=== PATIENT | female | born 1945 | race Caucasian/White ===

== ENCOUNTER 2020-12-23 14:43 | Emergency (ER) | payer MEDICARE, OTHER ==
[~2020-12-23 14:43] MED LIST: ASPIRIN81 MG PO; ATIVAN0.5 MG PO; CEFDINIR300 MG PO; CRANBERRY400 MG PO; DILANTIN100 MG PO; FLORASTOR250 MG PO; HALDOL1 MG PO; HEPARIN 10 UNIT/ML IV; K-DUR20 MEQ PO; LACTINEX1 EACH PO; LAMICTAL (BLUE)25 MG PO; LASIX20 MG PO; LEVAQUIN500 MG PO; LOPRESSOR100 MG PO; LOPRESSOR50 MG PO; MERREM500 MG IV; MILK OF MA2400 MG/10 PO; MIRALAX17 GM PO; NAMZARIC 21 MG1 EACH PO; NEURONTIN100 MG PO; NITROSTAT0.4 MG SL; NORCO 5-325 TA1 EACH PO; PAXIL20 MG PO; PHENOBARBITAL64.8 MG PO; PRILOSEC20 MG PO; REMERON15 MG PO; REMERON30 MG PO; RISPERDAL37.5 MG/2 IM; ROBITUSSIN100 MG/5 M PO; SENOKOT8.6 MG PO; TRAZODONE HCL50 MG PO; TYLENOL325 M1 PO; ULTRAM50 MG PO; UROCIT-K10 MEQ PO; VISTARIL25 MG PO; XANAX0.25 MG PO; ZESTRIL10 MG PO; ZOFRAN4 MG PO
[2020-12-23 16:05] LABS: BILIRUBIN NEGATIVE (NEGATIVE); BLOOD TRACE-INTACT Ery/uL (NEGATIVE); CLARITY CLEAR (CLEAR); COLOR YELLOW (YELLOW); GLUCOSE (U) NORMAL (NORMAL); LEUKOCYTES 3+ Leu/uL (NEGATIVE); NITRITE POSITIVE (NEGATIVE); PROTEIN NEGATIVE (NEGATIVE); UROBILINOGEN 0.2 mg/dL (0.2-1.0); pH 6.5 (5.0-9.0)
[2020-12-23 16:15] LABS: BASOPHIL 0.2 % (0-2); HCT 32.7 % (37.0-47.0); HGB 10.9 g/dl (12.5-16.0); LYMPHOCYTE 11.1 % (15-48); MCH 31.6 pg (25.0-31.0); MCHC 33.3 g/dL (32.0-36.0); MCV 94.8 fL (78.0-100.0); MONOCYTE 7.7 % (0-12); MPV 10.2 fL (6.0-9.5); NRBC 0; PLT 187 K/uL (150-400); RBC 3.45 M/uL (4.20-5.40); RDW 13.3 % (11.5-14.0); WBC 10.7 K/uL (4.0-10.5)
[2020-12-23 16:19] LABS: AMORPHOUS URATES CRYSTALS MODERATE; BACTERIA 4+; MUCOUS MODERATE; URINARY RBC RARE
[2020-12-23 16:31] LABS: BUN/CREAT RATIO (CALC) 17.1 RATIO; CREATININE 0.82 mg/dL (0.51-0.95); POTASSIUM 5.6 mmol/L (3.5-5.1)
[2020-12-23] MEDS ORDERED: MACROBID100 MG PO (17:54)
== END 2020-12-23 21:45 | disposition home or self-care (01) ==
LOC: FER 14:43
PROVIDERS: Emergency Medicine
DX: R41.82 Altered mental status, unspecified (principal); N39.0 Urinary tract infection, site not specified; E87.5 Hyperkalemia; E11.9 Type 2 diabetes mellitus without complications; I10 Essential (primary) hypertension; Z88.0 Allergy status to penicillin; Z88.8 Allergy status to other drugs, medicaments and biological substances
CPT/HCPCS: 36415; 73110; 80048; 81001; 85025; 87076; 87088; 87186

== ENCOUNTER 2021-05-14 14:46 | Emergency (ER) | payer MEDICARE, OTHER ==
[~2021-05-14 14:46] MED LIST changes: +MACROBID100 MG PO
[2021-05-14] MEDS ORDERED: NORCO 5-325 TA1 EACH PO ×3 (18:53→18:57)
== END 2021-05-14 20:10 | disposition home or self-care (01) ==
LOC: FER 14:46
DX: S42.251A Displaced fracture of greater tuberosity of right humerus, initial encounter for closed fracture (principal); S52.031A Displaced fracture of olecranon process with intraarticular extension of right ulna, initial encounter for closed fracture; S40.021A Contusion of right upper arm, initial encounter; J44.9 Chronic obstructive pulmonary disease, unspecified; I25.10 Atherosclerotic heart disease of native coronary artery without angina pectoris; F20.9 Schizophrenia, unspecified; Z88.8 Allergy status to other drugs, medicaments and biological substances; Z88.0 Allergy status to penicillin; W01.0XXA Fall on same level from slipping, tripping and stumbling without subsequent striking against object, initial encounter; Y92.009 Unspecified place in unspecified non-institutional (private) residence as the place of occurrence of the external cause
CPT/HCPCS: 73030; 73080; 96372; J1170

== ENCOUNTER 2021-08-07 12:37 | Emergency (ER) | payer MEDICARE, OTHER ==
[2021-08-07 13:30] LABS: BASOPHIL 0.2 % (0-2); EOSINOPHIL 0.8 % (0-7); HCT 40.4 % (37.0-47.0); HGB 13.2 g/dl (12.5-16.0); LYMPHOCYTE 15.2 % (15-48); MCH 31.1 pg (25.0-31.0); MCHC 32.7 g/dL (32.0-36.0); MCV 95.1 fL (78.0-100.0); MONOCYTE 9.3 % (0-12); MPV 10.6 fL (6.0-9.5); NEUTROPHIL 73.4 % (41-80); NRBC 0; PLT 203 K/uL (150-400); RBC 4.25 M/uL (4.20-5.40); WBC 9.2 K/uL (4.0-10.5)
[2021-08-07 13:30] LABS: BILIRUBIN NEGATIVE (NEGATIVE); BLOOD TRACE-INTACT Ery/uL (NEGATIVE); CLARITY CLEAR (CLEAR); COLOR YELLOW (YELLOW); GLUCOSE (U) NORMAL (NORMAL); LEUKOCYTES 1+ Leu/uL (NEGATIVE); NITRITE NEGATIVE (NEGATIVE); PROTEIN TRACE (LOW) mg/dL (NEGATIVE); UROBILINOGEN 0.2 mg/dL (0.2-1.0); pH 6.5 (5.0-9.0)
[2021-08-07 13:45] LABS: BACTERIA 1+
[2021-08-07 14:02] LABS: ALBUMIN 3.9 g/dL (3.4-5.0); BILIRUBIN - TOTAL 0.5 mg/dL (0.2-1.0); BUN/CREAT RATIO (CALC) 19.2 RATIO; CREATININE 0.73 mg/dL (0.51-0.95); GLOBULIN (CALCULATION) 3.6 g/dL; POTASSIUM 4.6 mmol/L (3.5-5.1); TOTAL PROTEIN 7.5 g/dL (6.4-8.2)
[2021-08-07 14:07] LABS: LACTIC ACID 1.4 mmol/L (0.4-1.9)
[2021-08-07 14:23] LABS: INFLUENZA A NAA NEGATIVE (NEGATIVE)
[2021-08-07 14:31] LABS: CORONAVIRUS 2019 SARS-COV-2 POSITIVE (NEGATIVE)
== END 2021-08-07 17:50 | disposition home or self-care (01) ==
LOC: FER 12:37
PROVIDERS: Emergency Medicine
DX: U07.1 COVID-19 (principal); J96.00 Acute respiratory failure, unspecified whether with hypoxia or hypercapnia; I10 Essential (primary) hypertension; J44.9 Chronic obstructive pulmonary disease, unspecified; F20.9 Schizophrenia, unspecified; Z88.0 Allergy status to penicillin; Z88.1 Allergy status to other antibiotic agents; Z23 Encounter for immunization
CPT/HCPCS: 36415; 36600; 70450; 71045; 80053; 81001; 82803; 83605; 84145; 84484; 85025; 94762; M0243; Q0244; U0002

== ENCOUNTER 2021-08-30 00:57 | Inpatient (IN) | payer MEDICARE, OTHER ==
[~2021-08-30] VITALS: Ht 157.5 cm; Wt 81.0 kg
[2021-08-30 02:11] LABS: BILIRUBIN 1+ mg/dL (NEGATIVE); BLOOD NEGATIVE Ery/uL (NEGATIVE); CLARITY CLEAR (CLEAR); COLOR YELLOW (YELLOW); GLUCOSE (U) NORMAL (NORMAL); LEUKOCYTES NEGATIVE Leu/uL (NEGATIVE); NITRITE NEGATIVE (NEGATIVE); PROTEIN 2+ mg/dL (NEGATIVE); SPECIFIC GRAVITY >=1.030 (1.001-1.030); UROBILINOGEN 0.2 mg/dL (0.2-1.0); pH 5.5 (5.0-9.0)
[2021-08-30 02:19] LABS: BASOPHIL 0.2 % (0-2); EOSINOPHIL 0 % (0-7); HGB 12.3 g/dl (12.5-16.0); LYMPHOCYTE 6.4 % (15-48); MCH 31.4 pg (25.0-31.0); MCHC 32.4 g/dL (32.0-36.0); MCV 96.9 fL (78.0-100.0); MPV 10.9 fL (6.0-9.5); NRBC 0; PLT 185 K/uL (150-400); RBC 3.92 M/uL (4.20-5.40); RDW 14.9 % (11.5-14.0)
[2021-08-30 02:20] LABS: AMORPHOUS URATES CRYSTALS TRACE; BACTERIA 2+
[2021-08-30 02:35] LABS: BUN/CREAT RATIO (CALC) 18.8 RATIO; CREATININE 2.18 mg/dL (0.51-0.95)
[2021-08-30 02:36] LABS: LACTIC ACID 1.3 mmol/L (0.4-1.9); NEUTROPHIL 81.6 % (41-80); WBC 32.1 K/uL (4.0-10.5)
[2021-08-30 14:04] LABS: BASOPHIL 0.2 % (0-2); EOSINOPHIL 0 % (0-7); HCT 31.6 % (37.0-47.0); HGB 9.9 g/dl (12.5-16.0); LYMPHOCYTE 9.5 % (15-48); MCH 31.1 pg (25.0-31.0); MCHC 31.3 g/dL (32.0-36.0); MCV 99.4 fL (78.0-100.0); MONOCYTE 8.1 % (0-12); MPV 10.7 fL (6.0-9.5); NEUTROPHIL 80.8 % (41-80); NRBC 0; PLT 188 K/uL (150-400); RBC 3.18 M/uL (4.20-5.40); RDW 14.8 % (11.5-14.0); WBC 25.8 K/uL (4.0-10.5)
[2021-08-30 14:39] LABS: BUN/CREAT RATIO (CALC) 26.6 RATIO; CREATININE 1.69 mg/dL (0.51-0.95); POTASSIUM 4.6 mmol/L (3.5-5.1)
[2021-08-31 06:00] LABS: BASOPHIL 0.3 % (0-2); EOSINOPHIL 0.6 % (0-7); HCT 30.6 % (37.0-47.0); HGB 9.5 g/dl (12.5-16.0); MCH 30.9 pg (25.0-31.0); MCV 99.7 fL (78.0-100.0); MONOCYTE 9.6 % (0-12); MPV 10.7 fL (6.0-9.5); NEUTROPHIL 77.2 % (41-80); NRBC 0; PLT 153 K/uL (150-400); RBC 3.07 M/uL (4.20-5.40); RDW 14.9 % (11.5-14.0); WBC 15.7 K/uL (4.0-10.5)
[2021-08-31 06:21] LABS: BUN/CREAT RATIO (CALC) 29.9 RATIO; CREATININE 1.54 mg/dL (0.51-0.95); MAGNESIUM 2.4 mg/dL (1.8-2.4); POTASSIUM 4.5 mmol/L (3.5-5.1)
--- NOTE | 2021-08-31 14:54 | NUR ---
08/31/21 [facility] will accept Ms. Etienne back per Clarice Cannon.
[2021-09-01 06:44] LABS: BASOPHIL 0.2 % (0-2); EOSINOPHIL 1.5 % (0-7); HGB 9.1 g/dl (12.5-16.0); LYMPHOCYTE 8.4 % (15-48); MCHC 31.4 g/dL (32.0-36.0); MCV 98.6 fL (78.0-100.0); MONOCYTE 8.4 % (0-12); MPV 11.2 fL (6.0-9.5); NEUTROPHIL 80.4 % (41-80); NRBC 0; PLT 172 K/uL (150-400); RBC 2.94 M/uL (4.20-5.40); RDW 14.7 % (11.5-14.0); RETICULOCYTE COUNT 3.2 % (1.0-2.0); WBC 13.5 K/uL (4.0-10.5)
[2021-09-01 07:02] LABS: IRON % SATURATION 17.7 %SAT (20-50)
[2021-09-01 07:24] LABS: ALBUMIN 3.1 g/dL (3.4-5.0); BILIRUBIN - TOTAL 0.2 mg/dL (0.2-1.0); BUN/CREAT RATIO (CALC) 38.4 RATIO; CREATININE 0.86 mg/dL (0.51-0.95); DILANTIN (PHENYTOIN) 3.7 ug/mL (10.0-20.0); GLOBULIN (CALCULATION) 3.2 g/dL; TOTAL PROTEIN 6.3 g/dL (6.4-8.2)
[2021-09-02 06:06] LABS: BASOPHIL 0.5 % (0-2); HCT 30.4 % (37.0-47.0); HGB 9.6 g/dl (12.5-16.0); LYMPHOCYTE 12.2 % (15-48); MCH 31.5 pg (25.0-31.0); MCHC 31.6 g/dL (32.0-36.0); MCV 99.7 fL (78.0-100.0); MONOCYTE 8.3 % (0-12); MPV 11.1 fL (6.0-9.5); NEUTROPHIL 75.3 % (41-80); NRBC 0; PLT 180 K/uL (150-400); RBC 3.05 M/uL (4.20-5.40); RDW 14.6 % (11.5-14.0); WBC 11.3 K/uL (4.0-10.5)
[2021-09-02 07:47] LABS: BUN/CREAT RATIO (CALC) 31.9 RATIO; CREATININE 0.69 mg/dL (0.51-0.95)
[2021-09-02] MEDS ORDERED: XANAX0.5 MG PO (17:37)
[2021-09-02] MEDS ORDERED: NEURONTIN300 MG PO (17:38)
[2021-09-02] MEDS ORDERED: HALOPERIDOL20 MG PO (17:39)
[2021-09-02] MEDS ORDERED: NORCO 5-325 TA1 EACH PO (17:39)
[2021-09-02] MEDS ORDERED: LAMICTAL100 MG PO (17:41)
[2021-09-02] MEDS ORDERED: ZESTRIL2.5 MG PO (17:41)
[2021-09-02] MEDS ORDERED: MELATONIN5 M2 PO (17:42)
[2021-09-02] MEDS ORDERED: SENOKOT8.6 MG PO (17:43)
[2021-09-02] MEDS ORDERED: VENTOLIN HFA IN18 GM INH (17:44)
[2021-09-03 06:21] LABS: BASOPHIL 0.7 % (0-2); EOSINOPHIL 3.6 % (0-7); HCT 30.2 % (37.0-47.0); HGB 9.5 g/dl (12.5-16.0); LYMPHOCYTE 16.5 % (15-48); MCH 31.5 pg (25.0-31.0); MCHC 31.5 g/dL (32.0-36.0); MONOCYTE 8.1 % (0-12); MPV 11.3 fL (6.0-9.5); NEUTROPHIL 67.7 % (41-80); NRBC 0; PLT 201 K/uL (150-400); RBC 3.02 M/uL (4.20-5.40); RDW 14.7 % (11.5-14.0); WBC 10.6 K/uL (4.0-10.5)
[2021-09-03 06:39] LABS: BUN/CREAT RATIO (CALC) 27.3 RATIO; CREATININE 0.66 mg/dL (0.51-0.95); POTASSIUM 4.1 mmol/L (3.5-5.1)
[2021-09-04 04:55] LABS: BASOPHIL 0.8 % (0-2); EOSINOPHIL 3.1 % (0-7); HCT 29.3 % (37.0-47.0); HGB 8.9 g/dl (12.5-16.0); LYMPHOCYTE 15.1 % (15-48); MCHC 30.4 g/dL (32.0-36.0); MCV 102.1 fL (78.0-100.0); MONOCYTE 8.7 % (0-12); MPV 10.7 fL (6.0-9.5); NEUTROPHIL 67.8 % (41-80); NRBC 0; PLT 207 K/uL (150-400); RBC 2.87 M/uL (4.20-5.40); RDW 14.5 % (11.5-14.0); WBC 10.2 K/uL (4.0-10.5)
[2021-09-04 05:15] LABS: BUN/CREAT RATIO (CALC) 24.2 RATIO; CREATININE 0.62 mg/dL (0.51-0.95); POTASSIUM 3.9 mmol/L (3.5-5.1)
[2021-09-05 06:32] LABS: BASOPHIL 0.6 % (0-2); EOSINOPHIL 2.7 % (0-7); HCT 26.9 % (37.0-47.0); HGB 8.6 g/dl (12.5-16.0); LYMPHOCYTE 15.7 % (15-48); MCH 31.9 pg (25.0-31.0); MCV 99.6 fL (78.0-100.0); NEUTROPHIL 67.6 % (41-80); NRBC 0; PLT 221 K/uL (150-400)
[2021-09-05 06:57] LABS: BUN/CREAT RATIO (CALC) 23.1 RATIO; CREATININE 0.65 mg/dL (0.51-0.95)
[2021-09-05] MEDS ORDERED: PHENOBARBITAL64.8 MG PO (10:16)
[2021-09-05] MEDS ORDERED: BIO-K PLUS DR1 EACH PO (10:20)
[2021-09-05] MEDS ORDERED: CLEOCIN300 MG PO (10:20)
[2021-09-05] MEDS ORDERED: CEFDINIR300 MG PO (10:34)
== END 2021-09-05 14:36 | DRG 871 ==
LOC: FER 00:57 → FICU 22:58 → FTCU 08-31 21:23
PROVIDERS: Emergency Medicine; Emergency Medicine Emergency Medical Services; Family Medicine; Internal Medicine; Nurse Practitioner; ADMIT Internal Medicine
PROC: 06HY33Z Insertion of Infusion Device into Lower Vein, Percutaneous Approach (ICD-10-PCS; principal; 2021-08-30)
PROC: XW033E5 Introduction of Remdesivir Anti-infective into Peripheral Vein, Percutaneous Approach, New Technology Group 5 (ICD-10-PCS; 2021-08-30)
PROC: 8E0ZXY6 Isolation (ICD-10-PCS; 2021-08-30)
PROC: 5A09457 Assistance with Respiratory Ventilation, 24-96 Consecutive Hours, Continuous Positive Airway Pressure (ICD-10-PCS; 2021-08-30)
DX: A40.8 Other streptococcal sepsis (principal); U07.1 COVID-19; J12.82 Pneumonia due to coronavirus disease 2019; J96.01 Acute respiratory failure with hypoxia; J15.9 Unspecified bacterial pneumonia; I21.A1 Myocardial infarction type 2; J44.0 Chronic obstructive pulmonary disease with (acute) lower respiratory infection; N17.9 Acute kidney failure, unspecified; E87.0 Hyperosmolality and hypernatremia; M48.54XA Collapsed vertebra, not elsewhere classified, thoracic region, initial encounter for fracture; G93.40 Encephalopathy, unspecified; A41.1 Sepsis due to other specified staphylococcus; Z66 Do not resuscitate; D50.9 Iron deficiency anemia, unspecified; I10 Essential (primary) hypertension; F25.9 Schizoaffective disorder, unspecified; F41.9 Anxiety disorder, unspecified; I25.10 Atherosclerotic heart disease of native coronary artery without angina pectoris; M19.90 Unspecified osteoarthritis, unspecified site; E66.9 Obesity, unspecified; Z79.899 Other long term (current) drug therapy; Z98.890 Other specified postprocedural states; Z88.0 Allergy status to penicillin; Z88.8 Allergy status to other drugs, medicaments and biological substances; Z88.1 Allergy status to other antibiotic agents; Z90.710 Acquired absence of both cervix and uterus; Z68.28 Body mass index [BMI] 28.0-28.9, adult
CPT/HCPCS: 36415; 36600; 70450; 71045; 71250; 78580; 80048; 80053; 80185; 80202; 81001; 82728; 82803; 83540; 83550; 83605; 83735; 83880; 84145; 84484; 85025; 85379; 87040; 87077; 87088; 87186; 93005; 94640; 96374; 96375; 96376; 97162; 97530-GP; A9540; C9399; J0692; J0696; J1100; J1650; J1940; J2060; J2270; J2405; J2916; J3370; J7030; J7050; J7060; J7120; J8540; P9047; U0002

== ENCOUNTER 2021-09-09 13:38 | Inpatient (IN) | payer MEDICARE, OTHER ==
[~2021-09-09] VITALS: Ht 165.1 cm; Wt 76.8 kg
[~2021-09-09 13:38] MED LIST changes: +BIO-K PLUS DR1 EACH PO; +CLEOCIN300 MG PO; +HALOPERIDOL20 MG PO; +LAMICTAL100 MG PO; +MELATONIN5 M2 PO; +NEURONTIN300 MG PO; +VENTOLIN HFA IN18 GM INH; +XANAX0.5 MG PO; +ZESTRIL2.5 MG PO
[2021-09-09 14:30] LABS: BASOPHIL 0.4 % (0-2); EOSINOPHIL 1.1 % (0-7); HCT 31.3 % (37.0-47.0); HGB 9.5 g/dl (12.5-16.0); LYMPHOCYTE 6.6 % (15-48); MCH 31.9 pg (25.0-31.0); MCHC 30.4 g/dL (32.0-36.0); MONOCYTE 4.9 % (0-12); MPV 10.4 fL (6.0-9.5); NEUTROPHIL 85.2 % (41-80); NRBC 0; PLT 307 K/uL (150-400); RBC 2.98 M/uL (4.20-5.40); RDW 15.8 % (11.5-14.0); WBC 15.2 K/uL (4.0-10.5)
[2021-09-09 14:53] LABS: CREATININE 0.75 mg/dL (0.51-0.95); POTASSIUM 5.4 mmol/L (3.5-5.1)
[2021-09-09 15:26] LABS: CORONAVIRUS 2019 SARS-COV-2 NEGATIVE (NEGATIVE); INFLUENZA A NAA NEGATIVE (NEGATIVE)
[2021-09-10 07:22] LABS: BASOPHIL 0.3 % (0-2); EOSINOPHIL 0.6 % (0-7); HCT 30.1 % (37.0-47.0); HGB 9.3 g/dl (12.5-16.0); LYMPHOCYTE 6.2 % (15-48); MCH 31.2 pg (25.0-31.0); MCHC 30.9 g/dL (32.0-36.0); MONOCYTE 5.2 % (0-12); MPV 10.3 fL (6.0-9.5); NEUTROPHIL 86.6 % (41-80); NRBC 0; PLT 302 K/uL (150-400); RBC 2.98 M/uL (4.20-5.40); RDW 15.6 % (11.5-14.0); WBC 15.1 K/uL (4.0-10.5)
[2021-09-10 07:47] LABS: BUN/CREAT RATIO (CALC) 11.5 RATIO; CREATININE 0.61 mg/dL (0.51-0.95); POTASSIUM 4.7 mmol/L (3.5-5.1)
--- NOTE | 2021-09-10 14:56 | NUR ---
CALLED TO PATIENT ROOM BY OTHER NURSES WHO CALLED OUT FOR "HELP," PATIENT WAS FOUND ON TOILET, UNRESPONSIVE, ON TELEMETRY HR WAS SHOWING 20'S, PATIENT WAS LOWERED TO FLOOR, WAS NOT RESPONDING, PULSE CHECKED BY 2 RN'S, NO PULSE FELT, CPR STARTED AND CODE CALLED, COMPRESSIONS STOPPED AFTER APPROX 20 SECONDS AFTER MD AND PRIMARY RN ARRIVED TO ROOM, PATIENT WAS DNR STATUS. PATIENT TAKEN BACK TO BED VIA MULTIPLE STAFF LIFT USING A SHEET. PATIENT PLACED ON 100% NRB OXYGEN, VITALS OBTAINED, BP 177/71, HR 60, O2 SAT INCREASING WITH THE NRB OXYGEN. GLUCOSE 179. RT AT BEDSID TO OBTAIN EKG AND ABG. MD AT BEDSIDE.
--- NOTE | 2021-09-10 15:00 | NUR ---
CALL TO GUARDIAN BUT WAS A FAX MACHINE, CALL TO SISTER AND CORRECT NUMBER OBTAINED WELL UPDATED, CALL TO GUARDIAN AND MESSAGE LEFT
[2021-09-10 15:09] LABS: BASOPHIL 0.4 % (0-2); EOSINOPHIL 0.4 % (0-7); HCT 31.7 % (37.0-47.0); HGB 9.8 g/dl (12.5-16.0); LYMPHOCYTE 7.3 % (15-48); MCH 31.5 pg (25.0-31.0); MCHC 30.9 g/dL (32.0-36.0); MCV 101.9 fL (78.0-100.0); MPV 10.5 fL (6.0-9.5); NEUTROPHIL 82.9 % (41-80); NRBC 0; PLT 347 K/uL (150-400); RBC 3.11 M/uL (4.20-5.40); RDW 15.3 % (11.5-14.0); WBC 22.9 K/uL (4.0-10.5)
[2021-09-10 15:25] LABS: ALBUMIN 3.2 g/dL (3.4-5.0); BILIRUBIN - TOTAL 0.3 mg/dL (0.2-1.0); BUN/CREAT RATIO (CALC) 14.5 RATIO; CREATININE 0.62 mg/dL (0.51-0.95); GLOBULIN (CALCULATION) 3.5 g/dL; MAGNESIUM 2.2 mg/dL (1.8-2.4); POTASSIUM 4.7 mmol/L (3.5-5.1); TOTAL PROTEIN 6.7 g/dL (6.4-8.2)
[2021-09-10 16:29] LABS: BILIRUBIN NEGATIVE (NEGATIVE); BLOOD TRACE-INTACT Ery/uL (NEGATIVE); CLARITY CLEAR (CLEAR); COLOR YELLOW (YELLOW); GLUCOSE (U) NORMAL (NORMAL); LEUKOCYTES NEGATIVE Leu/uL (NEGATIVE); NITRITE NEGATIVE (NEGATIVE); PROTEIN NEGATIVE (NEGATIVE); SPECIFIC GRAVITY 1.025 (1.001-1.030); UROBILINOGEN 0.2 mg/dL (0.2-1.0); pH 5.5 (5.0-9.0)
[2021-09-10 16:31] LABS: URINARY RBC RARE; URINARY WBC RARE
--- NOTE | 2021-09-10 18:21 | NUR ---
09/10/21 [facility] will accept Ms. Etienne back per Clarice Cannon.
--- NOTE | 2021-09-11 00:22 | NUR ---
1999- PATIENT'S OXYGEN SATS DECREASED TO LOW 80'S. LUNGS FILLED WITH FLUID RALES AND RHONCHI AUTIBLE, UNABLE TO COUGH D/T WEAKNESS AND C/O PAIN IN CHEST REGION. DR GAUTAM NOTFIED OF CONDITION NEW ORDERS RECIEVED FOR BUMEX, ROBINUAL AND NITROGLYCERIN PASTE. oRDER ALSO RECIEVED TO TRANSFER TO TCU UNIT. 2014 REPORT CALLED TO [facility] NURSE Rigoberto CANTOR RN. 2019- PATIENT TRANSFERRED TO TCU ROOM 7 VIA BED. OXYGEN GIVEN PER O2 TANK. 2024- NOTIFIED FAMILY BRANDIN VALENCIA AND INFORMED OF CHANGE OF CONDITION AND TRANSFER TO TCU.
--- NOTE | 2021-09-11 07:13 | NUR ---
0425 PT. TEMP IS 101.2 AXILLARY. CONTACTED SOFTWARE BUSINESS ANALYST TO GET TYLENOL SUPP. AROUND 0445 PT HEART RATE DROPPED FROM 90'S TO 30'S. SOFTWARE BUSINESS ANALYST WAS NOTIFIED. SHE CAME OVER AND ASSESSED PATIENT. ROBINUL ATROPINE AND TYLENOL SUPP WAS ORDERED BUT UNABLE TO BE USED. PT. HEART AND BREATHING STOPPED AT 0515 PER SOFTWARE BUSINESS ANALYST. FAMILY WAS NOTIFIED. [facility] WAS NOTIFIED. ANA WAS CALLED IN. ALIREZA GRIFFITH WITH [facility] GAVE THE CASE NUMBER OF [id number]
== END 2021-09-11 07:30 | disposition expired | DRG 871 ==
LOC: FER 13:38 → FMS 20:17 → FER 21:30 → FMS 09-10 16:08 → FTCU 09-10 19:57
PROVIDERS: Internal Medicine; Nurse Practitioner; ADMIT Internal Medicine
PROC: 5A12012 Performance of Cardiac Output, Single, Manual (ICD-10-PCS; principal; 2021-09-10)
PROC: 0T9B70Z Drainage of Bladder with Drainage Device, Via Natural or Artificial Opening (ICD-10-PCS; 2021-09-10)
DX: A41.9 Sepsis, unspecified organism (principal); J69.0 Pneumonitis due to inhalation of food and vomit; J96.00 Acute respiratory failure, unspecified whether with hypoxia or hypercapnia; J18.9 Pneumonia, unspecified organism; J44.0 Chronic obstructive pulmonary disease with (acute) lower respiratory infection; E87.5 Hyperkalemia; Z66 Do not resuscitate; Z20.822 Contact with and (suspected) exposure to COVID-19; F03.90 Unspecified dementia, unspecified severity, without behavioral disturbance, psychotic disturbance, mood disturbance, and anxiety; I46.9 Cardiac arrest, cause unspecified; I10 Essential (primary) hypertension; R79.89 Other specified abnormal findings of blood chemistry; E11.40 Type 2 diabetes mellitus with diabetic neuropathy, unspecified; I25.10 Atherosclerotic heart disease of native coronary artery without angina pectoris; F44.5 Conversion disorder with seizures or convulsions; E78.5 Hyperlipidemia, unspecified; F41.9 Anxiety disorder, unspecified; D50.9 Iron deficiency anemia, unspecified; F20.9 Schizophrenia, unspecified; M19.90 Unspecified osteoarthritis, unspecified site; Z88.0 Allergy status to penicillin; Z98.890 Other specified postprocedural states; Z88.1 Allergy status to other antibiotic agents; Z88.8 Allergy status to other drugs, medicaments and biological substances; Z79.899 Other long term (current) drug therapy; R00.1 Bradycardia, unspecified
CPT/HCPCS: 36415; 36600; 70450; 71045; 80048; 80053; 81001; 82803; 83605; 83735; 83880; 84145; 84484; 85025; 93005; 94640; 94760; 97162; 97166; 97530-GP; 97535; G0378; J0461; J0692; J1335; J1650; J2185; J3010; J7030; U0002